=== PATIENT | female | born 1955 | race Caucasian/White ===

== ENCOUNTER 2021-08-26 12:04 | Day surgery (SDC) | payer MEDICARE ==
[2021-08-25 08:57] VITALS: BMI 21.5
[~2021-08-26 12:04] MED LIST: DEXAMETHASONE SOD PHOSPHATE 4 MG/ML 1 ML VIAL IV ONE; FAMOTIDINE 20 MG/2 ML VIAL IV PRN; HYDROmorphone 0.5 MG/0.5 ML SYRINGE IVP PRN; LACTATED RINGERS 1,000 ML IV SCH; LIDOCAINE 1% (10MG/ML) FOR IV START INTRADERMA PRN; MIDAZOLAM 2 MG/2 ML VIAL IV PRN; ONDANSETRON 4 MG/2 ML VIAL IVP ONE; ONDANSETRON 4 MG/2 ML VIAL IVP PRN; SCOPOLAMINE 1.5MG/72HR PATCH TRANSDERM PRN
[2021-08-26] MEDS ORDERED: LIDOCAINE 1% (10MG/ML) FOR IV START SQ ONE (13:27)
[2021-08-26] MEDS ORDERED: fentaNYL (PF) 50 MCG/ML 2 ML AMP ONE (15:00)
[2021-08-26] MEDS ORDERED: MIDAZOLAM 2 MG/2 ML VIAL ONE (15:00)
[2021-08-26] MEDS ORDERED: LIDOCAINE 1% INJ 10MG/ML (20 ML MDV) ONE (15:00)
[2021-08-26] MEDS ORDERED: PROPOFOL 10 MG/ML 20 ML VIAL IV ONE (15:00)
[2021-08-26] MEDS ORDERED: SUCCINYLCHOLINE CHLORIDE 100 MG/5 ML SYR IV ONE (15:00)
[2021-08-26] MEDS ORDERED: LIDOCAINE 1%-EPI 1:100,000 20 ML VIAL SQ ONE (15:26)
[2021-08-26] MEDS ORDERED: BACITRACIN ZINC 500 UNIT/GM OINT 28.4 GM TUBE TOPICAL ONE ×2 (15:46→16:00)
[2021-08-26 16:16] VITALS: TEMP 96.8
--- NOTE | 2021-08-26 16:16 | P.OP ---
Date of Procedure: 08/26/21 Preoperative Diagnosis: Right parotid pleomorphic adenoma Postoperative Diagnosis: Same Procedure(s) Performed: Right superficial parotidectomy with facial nerve monitoring and preservation Anesthesia: PASTOR Surgeon: Harinder Bui Estimated Blood Loss (ml): 5 Pathology: other (Right parotid lesion) Condition: stable Disposition: PACU Indications for Procedure: This 66-year-old white female with bilateral parotid lesions although the left is only 4 mm and not palpable. The right parotid nodule is 8 mm on computed tomography scan and fine-needle aspiration was diagnostic of pleomorphic adenoma Operative Findings: Right parotid nodule in the preauricular area approximately 1 cm this. Well encapsulated but adjacent to 2 small branches of the facial nerve and therefore was dissected on the capsule Description of Procedure: The patient was brought in the operative suite and placed in a supine position. The patient underwent induction of general anesthesia with oral endotracheal intubation without difficulty. The patient was prepped and draped in usual aseptic fashion. Prior to this NIM II facial nerve monitor was placed with a 4 channel monitoring and this was working well with stimulation. 1% lidocaine with 1 100,000 epinephrine was infused subcutaneously in the right preauricular crease. This was left to work for 7 minutes vasoconstrictive effect. A preauricular incision was fashioned preauricular crease and carried sharply through the skin and subcutaneous tissue to the SMAS. An anterior skin flap was developed just overlying the SMAS. The nodule was palpable and visualized at the lateral aspect of the parotid gland just deep to the SMAS. Dissection was performed of the superior and inferior aspect and 2 small facial nerve branches were noted at the superior and inferior aspect of the lesion and were dissected from the lesion itself grossly intact. The posterior and anterior aspects of the lesion were then dissected from the surrounding parotid gland with a small cuff of normal-appearing parotid tissue around the lesion. The lesion was then excised from the surrounding tissue. The lesion was inspected and the capsule appeared intact. At the superior and inferior aspect there was very little cuff of normal tissue due to the fact that these origins were adjacent to the facial nerve. The wound was inspected and no gross disease was noted. Good hemostasis was noted. The wound was copiously irrigated with warm sterile normal saline and hemostasis remained good. This was a small superficial wound and therefore did not necessitate a drain. The deep superficial subcutaneous layers were closed with inverted interrupted 4-0 Vicryl suture and the skin was closed with running locking 5-0 Prolene suture. Bacitracin ointment and sterile dressing were placed. The patient was then allowed to emerge from general anesthesia having tolerated procedure well was extubated in the operating suite and transferred to postop recovery area in satisfactory condition. Prior to wound closure the branches of the facial nerve which were in the field stimulated well at 0.5 mA. Upon emergence the patient had normal facial movement.
[2021-08-26 17:06] VITALS: RESP 18
[2021-08-26 17:16] VITALS: BP 112/76; PULSE 66
== END 2021-08-26 17:35 | disposition home or self-care (01) ==
LOC: OR 12:04
PROVIDERS: ATTEND Otolaryngology
DX: D11.0 Benign neoplasm of parotid gland (principal)
CPT/HCPCS: 12011; J2250; J1100; J2405; J0690; J2001; J3010; J0330; J2704; 88305

== ENCOUNTER → 2024-08-30 | Outpatient (CLI) | payer MEDICARE ==
--- NOTE | 2024-09-02 22:30 | BD ---
EXAMINATION TYPE: Axial Bone Density DATE OF EXAM: 08/30/2024 CLINICAL HISTORY: 69 years old Female. ICD-10 CODE: M81.0 OSTEOPOROSIS;E03.9 HYPOTHROID , Additional History: Height: 62 Weight: 123.9 FRAX RISK QUESTIONS: Alcohol (3 or more units per day): no Family History (Parent hip fracture): yes Glucocorticoids (More than 3mos): no (Ex: prednisone, prednisolone, methylprednisolone, dexamethasone, and hydrocortisone). History of Fracture in Adulthood: no Secondary Osteoporosis: 1. Type 1 Diabetes: no 2. Hyperthyroidism: no 3. Menopause before 45: no 4. Malnutrition: no 5. Chronic liver disease: no Rheumatoid Arthritis: no Current Tobacco Use: no RISK FACTORS HISTORY OF: Surgery to Spine/Hip(right/left)/Wrist (right/left): no MEDICATIONS: Thyroid Medications: levothyroxine .75 How Lon years EXAM MEASUREMENTS: Bone mineral densitometry was performed using the [employer] System. Bone mineral density as measured about the Lumbar spine is: ----- L1-L4(G/cm2): 1.028 T Score Values are as follows: ----- L1: -1.5 ----- L2: -1.7 ----- L3: -0.8 ----- L4: -1.2 ----- L1-L4: -1.3 Z Score Values are as follows: ----- L1: 0.5 ----- L2: 0.2 ----- L3: 1.1 ----- L4: 0.7 ----- L1-L4: 0.7 Bone mineral density : baseline Bone mineral density about the R hip (g/cm2): 0.936 Bone mineral density about the L hip (g/cm2): 0.943 T Score values are as follows: -----R Neck: -0.5 -----L Neck: -0.5 -----R Total: -0.6 -----L Total: -0.5 Z Score values are as follows: -----R Neck: 1.4 -----L Neck: 1.4 -----R Total: 1.1 -----L Total: 1.2 Bone mineral density : baseline FRAX%s: The graph provided illustrates a 11.5% chance for a major osteoporotic fx and a 1.3% chance f or the hips probability for fx in 10 years time. IMPRESSION: Osteopenia (T Score between -2.5 and -1). There is slightly increased risk of fracture and the patient may be considered for treatment. Re-Screen 2-5 years. NOTE: T-SCORE=SD OF THE YOUNG ADULT MEAN. [facility], , 09/02/2024 10:28 PM
== END | disposition home or self-care (01) ==
LOC: RADBDWWP 08:30
PROVIDERS: ATTEND Family Medicine
DX: M81.0 Age-related osteoporosis without current pathological fracture (principal); M85.89 Other specified disorders of bone density and structure, multiple sites; E03.9 Hypothyroidism, unspecified
CPT/HCPCS: 77080